=== PATIENT | female | born 1975 | race Caucasian/White ===

== ENCOUNTER 2024-08-17 15:48 | Emergency (ER) | payer MEDICAID ==
[~2024-08-17] VITALS: Ht 160 cm; Wt 58.0 kg
[2024-08-17 15:50] VITALS: O2SAT 98
[2024-08-17] MEDS ORDERED: KETOROLAC 30MG/ML VIAL IM ONE (16:15)
[2024-08-17] MEDS ORDERED: TETANUS, DIPHTHERIA, PERTUSSIS VAC/PF 0.5ML (>10YR OLD) IM ONE (16:15)
[2024-08-17] MEDS: TETANUS, DIPHTHERIA, PERTUSSIS VAC/PF 0.5ML (>10YR OLD) IM ONE (19:41)
[2024-08-17] MEDS: KETOROLAC 30MG/ML VIAL IM NR (19:41)
[2024-08-17] MEDS ORDERED: NAPR-1074 MT (19:53)
[2024-08-17 20:16] VITALS: BP 132/82; PULSE 71; RESP 16; TEMP 36.66960; O2SAT 99
== END 2024-08-17 20:18 | disposition home or self-care (01) ==
LOC: ER 15:48
DX: S20.212A Contusion of left front wall of thorax, initial encounter (principal); V49.9XXA Car occupant (driver) (passenger) injured in unspecified traffic accident, initial encounter; Y93.89 Activity, other specified; Y92.89 Other specified places as the place of occurrence of the external cause; Y99.8 Other external cause status
CPT/HCPCS: 71046; 90715; 90471; 96372; 99284; J1885; Z7610